=== PATIENT | female | born 1995 | race African-American/Black ===

== ENCOUNTER 2022-02-04 20:13 | Emergency (ER) | payer MEDICAID, OTHER ==
[~2022-02-04] VITALS: Ht 170 cm; Wt 47.6 kg
--- NOTE | 2022-02-04 20:49 | ED EENT ---
History of Present Illness General Chief Complaint: Dental Problems/Pain Stated Complaint: DENTAL PAIN Nursing Triage Note: PT AMB TO ED BY POV WITH FATHER AND BROTHER WITH C/O DENTAL PAIN. PT REPORTS SHE BROKE HER TOOTH IN JULY, BEGAN HAVING SEVERE PAIN EARLIER TODAY. REPORTS SHE WAS SEEN AT [facility] EARLIER TODAY, WAS GIVEN ZOFRAN AND SHOTS IN HER MOUTH, HAD LAB WORK, BUT DID NOT KNOW THE RESULTS. PT IS NAUSEOUS, ACHY, AND HAVING CHILLS. Source: patient, family Exam Limitations: no limitations History of Present Illness Date Seen by Provider: Feb 04, 2022 Time Seen by Provider: 20:46 Initial Comments Patient is a 26-year-old female with a history of anemia who presents ED with father and brother for left lower dental pain. She has had left lower dental pain since July. She states she fractured her left lower molar. Patient Was seen at a clinic in [place] concerned that patient was febrile and having this left lower dental pain and was sent to the ER. Was given a dental block, Zofran and oral antibiotic and was prescribed oral antibiotics outpatient. Patient continued to have pain so was brought to the ED for further evaluation concerning for sepsis. She states she has been feeling nauseous achy and having chills today. She states she did have lab work drawn at [facility] but she cannot recall the results. No vomiting, diarrhea, cough, chest pain abdominal pain or urinary symptoms. Denies any facial swelling or redness, ear pain or sore throat. Allergies and Home Medications Allergies Coded Allergies: No Known Drug Allergies (Unverified , 02/04/22) Patient Home Medication List Home Medication List Reviewed: Yes Hydrocodone/Acetaminophen (Hydrocodone-Acetamin 5-325 mg) 5 Mg-325 Mg Tablet, 1 TAB PO Q4H PRN for PAIN-MODERATE (5-7) Prescribed by: RONA NEUMANN on 02/04/22 1256 Review of Systems Review of Systems Constitutional: chills, malaise, weakness Eyes: Denies Drainage, Denies Decreased Acuity Ears: Denies Dizziness, Denies Pain, Denies Bloody Discharge, Denies Clear Discharge, Denies Purulent Discharge Nose: denies clots, denies clear discharge Mouth: loose teeth, pain Throat: denies pain, denies swelling Respiratory: No cough, No dyspnea on exertion Cardiovascular: No chest pain, No edema Gastrointestinal: No abdominal pain, No diarrhea, No nausea, No vomiting Musculoskeletal: No back pain, No joint pain Skin: No change in hair/nails Past Lgjpwsk-Jglmzj-Ettoya Hx Patient Social History Tobacco Use?: No Use of E-Cig and/or Vaping dev: No Substance use?: Yes Substance type: Marijuana Substance frequency: Couple times a week Alcohol Use?: No Pt feels they are or have been: No Immunizations Up To Date Influenza Vaccine Up-to-Date: No; Not Current Past Medical History Surgery/Hospitalization HX: ANEMIA Physical Exam Vital Signs Vital Signs - First Documented 02/04/22 20:27 Temp 38.3 Pulse 99 Resp 16 B/P (MAP) 127/84 (98) Pulse Ox 99 O2 Delivery Room Air Height, Weight, BMI Height: '" Weight: lbs. oz. kg; 16.00 BMI Method: General Appearance: WD/WN, no apparent distress Eyes: bilateral eye normal inspection, bilateral eye PERRL, bilateral eye EOMI Ears: bilateral ear auricle normal, bilateral ear canal normal, bilateral ear bleeding Nose: normal inspection Mouth/Throat: other (Left lower third molar tenderness with decay gum swelling redness without function mass) Neck: non-tender, full range of motion, supple Cardiovascular: no edema, no gallop, no JVD, tachycardia Respiratory: chest non-tender, lungs clear, normal breath sounds, no respiratory distress, no accessory muscle use Gastrointestinal: normal bowel sounds, non tender, soft, no organomegaly 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, no motor/sensory deficits, alert, normal mood/affect, oriented x 3 Skin: normal color, warm/dry Progress/Results/Core Measures Results/Orders Lab Results Laboratory Tests Test 02/04/22 20:46 02/04/22 21:22 Range/Units Influenza Type A (RT-PCR) Not Detected Not Detecte Influenza Type B (RT-PCR) Not Detected Not Detecte SARS-CoV-2 RNA (RT-PCR) Detected H Not Detecte White Blood Count 6.9 4.3-11.0 10^3/uL Red Blood Count 3.78 L 3.80-5.11 10^6/uL Hemoglobin 11.8 11.5-16.0 g/dL Hematocrit 35 35-52 % Mean Corpuscular Volume 92 80-99 fL Mean Corpuscular Hemoglobin 31 25-34 pg Mean Corpuscular Hemoglobin Concent 34 32-36 g/dL Red Cell Distribution Width 13.3 10.0-14.5 % Platelet Count 192 130-400 10^3/uL Mean Platelet Volume 9.1 9.0-12.2 fL Immature Granulocyte % (Auto) 0 % Neutrophils (%) (Auto) 84 H 42-75 % Lymphocytes (%) (Auto) 5 L 12-44 % Monocytes (%) (Auto) 11 0-12 % Eosinophils (%) (Auto) 0 0-10 % Basophils (%) (Auto) 0 0-10 % Neutrophils # (Auto) 5.8 1.8-7.8 10^3/uL Lymphocytes # (Auto) 0.3 L 1.0-4.0 10^3/uL Monocytes # (Auto) 0.8 0.0-1.0 10^3/uL Eosinophils # (Auto) 0.0 0.0-0.3 10^3/uL Basophils # (Auto) 0.0 0.0-0.1 10^3/uL Immature Granulocyte # (Auto) 0.0 0.0-0.1 10^3/uL Neutrophils % (Manual) 85 % Lymphocytes % (Manual) 3 % Monocytes % (Manual) 12 % Blood Morphology Comment NORMAL Sodium Level 137 135-145 MMOL/L Potassium Level 3.2 L 3.6-5.0 MMOL/L Chloride Level 103 98-107 MMOL/L Carbon Dioxide Level 22 21-32 MMOL/L Anion Gap 12 5-14 MMOL/L Blood Urea Nitrogen 4 L 7-18 MG/DL Creatinine 0.88 0.60-1.30 MG/DL Estimat Glomerular Filtration Rate 92 BUN/Creatinine Ratio 5 Glucose Level 96 70-105 MG/DL Calcium Level 8.8 8.5-10.1 MG/DL Corrected Calcium 8.8 8.5-10.1 MG/DL Total Bilirubin 0.6 0.1-1.0 MG/DL Aspartate Amino Transf (AST/SGOT) 15 5-34 U/L Alanine Aminotransferase (ALT/SGPT) 18 0-55 U/L Alkaline Phosphatase 64 40-136 U/L C-Reactive Protein High Sensitivity 0.27 0.00-0.50 MG/DL Total Protein 6.6 6.4-8.2 GM/DL Albumin 4.0 3.2-4.5 GM/DL My Orders Orders - SEBASTIAN GRAZA Cbc With Automated Diff (02/04/22 20:36) Comprehensive Metabolic Panel (02/04/22 20:36) Hs C Reactive Protein (02/04/22 20:36) Covid 19 Inhouse Test (02/04/22 20:36) Influenza A And B By Pcr (02/04/22 20:36) Hydrocodone/Apap 5/325 Tablet (Lortab 5 (02/04/22 21:15) Ibuprofen Tablet (Motrin Tablet) (02/04/22 21:30) Manual Differential (02/04/22 21:22) Medications Given in ED Current Medications Medications Dose Ordered Sig/Herminia Route Start Time Stop Time Status Last Admin Dose Admin Acetaminophen/ Hydrocodone Bitart 1 ea ONCE ONCE PO 02/04/22 21:15 02/04/22 21:16 DC 02/04/22 21:22 1 EA Ibuprofen 400 mg ONCE ONCE PO 02/04/22 21:30 02/04/22 21:31 DC 02/04/22 21:22 400 MG Vital Signs/I&O 02/04/22 20:27 Temp 38.3 Pulse 99 Resp 16 B/P (MAP) 127/84 (98) Pulse Ox 99 O2 Delivery Room Air Blood Pressure Mean: 98 Departure Communication (PCP) Patient started with flulike symptoms today. She is also having left lower dental pain third molar since July after a dental fracture. Decay noted. No function mass. No facial swelling or redness. Exam otherwise benign. She was febrile was given ibuprofen. Flulike symptoms started today. Tested positive for COVID. Her lung sounds clear bilateral. No abdominal tenderness. No urinary symptoms. She is not septic which family was concerned of. She was given dose of pain medication as well with improvement of dental pain. She will need to follow-up with a dentist for further evaluation once COVID symptoms have improved. Recommend isolation for the next 5 days. If continue be in symptomatic recommend continuing for another 5 days or until asymptomatic for 24 hours without any fever. If any worsening symptoms such as shortness of breath, unable to eat or drink, chest pain to return back to ED. Will discharge with few days worth of pain medication. She has amoxicillin at her pharmacy prescribed today from [place] [facility] Impression Primary Impression: COVID-19 Additional Impression: Pain, dental Disposition: HOME, SELF-CARE Condition: Stable Departure-Patient Inst. Decision time for Depature: 21:52 Referrals: NO,LOCAL PHYSICIAN (PCP/Family) Primary Care Physician Patient Instructions: COVID-19 (DC) Add. Discharge Instructions: Recommend drinking plenty of fluids at home. Continue with your antibiotics as prescribed from [place] for your dental infection. Recommend quarantine for 5 days. If continue having symptoms recommend quarantine until asymptomatic and potentially another 5 days. If any worsening symptoms such as severe chest pain, shortness of breath, not able to eat or drink to return back to ED. All discharge instructions reviewed with patient and/or family. Voiced understanding. Scripts Hydrocodone/Acetaminophen (Hydrocodone-Acetamin 5-325 mg) 5 Mg-325 Mg Tablet 1 TAB PO Q4H PRN for PAIN-MODERATE (5-7), #6 TAB Prov: SEBASTIAN GARZA 02/04/22 SEBASTIAN GARZA Feb 04, 2022 20:49
[2022-02-04] MEDS ORDERED: HYDROcodone/APAP 5 MG/325 MG (LORTAB) TAB PO ONE (21:15)
[2022-02-04] MEDS ORDERED: IBUPROFEN TABLET 200 MG TAB PO ONE (21:30)
[2022-02-04 21:35] LABS: BASOPHILS % (AUTO) 0 % (0-10); EOSINOPHILS % (AUTO) 0 % (0-10); HEMATOCRIT 35 % (35-52); HEMOGLOBIN 11.8 g/dL (11.5-16.0); LYMPHOCYTES # (AUTO) 0.3 10^3/uL (1.0-4.0); LYMPHOCYTES % (AUTO) 5 % (12-44); MEAN CORPUSCULAR HEMOGLOBIN 31 pg (25-34); MEAN CORPUSCULAR HGB CONC 34 g/dL (32-36); MEAN CORPUSCULAR VOLUME 92 fL (80-99); MEAN PLATELET VOLUME 9.1 fL (9.0-12.2); MONOCYTES # (AUTO) 0.8 10^3/uL (0.0-1.0); MONOCYTES % (AUTO) 11 % (0-12); NEUTROPHILS # (AUTO) 5.8 10^3/uL (1.8-7.8); NEUTROPHILS % (AUTO) 84 % (42-75); PLATELET COUNT 192 10^3/uL (130-400); WHITE BLOOD COUNT 6.9 10^3/uL (4.3-11.0)
[2022-02-04 21:45] LABS: POTASSIUM 3.2 MMOL/L (3.6-5.0)
[2022-02-04 21:47] LABS: CALCIUM 8.8 MG/DL (8.5-10.1)
[2022-02-04 21:48] LABS: TOTAL PROTEIN 6.6 GM/DL (6.4-8.2)
[2022-02-04 21:49] LABS: BILIRUBIN,TOTAL 0.6 MG/DL (0.1-1.0)
[2022-02-04 21:52] LABS: CREATININE SERUM 0.88 MG/DL (0.60-1.30)
[2022-02-04] MEDS ORDERED: ACHD5005 PO (21:53)
[2022-02-04 21:55] LABS: LYMPHOCYTES % (MANUAL) 3 %; MONOCYTES % (MANUAL) 12 %; NEUTROPHILS % (MANUAL) 85 %
[2022-02-04 21:56] LABS: RBC MORPH NORMAL
[2022-02-04 22:35] VITALS: BP 123/85
== END 2022-02-04 22:12 | disposition home or self-care (01) ==
LOC: ER 20:16
DX: U07.1 COVID-19 (principal); K08.89 Other specified disorders of teeth and supporting structures; Z28.310 Unvaccinated for COVID-19
CPT/HCPCS: 36415; 80053; 85007; 85027; 86141; 87636